=== PATIENT | male | born 1960 | race Caucasian/White ===

== ENCOUNTER 2024-08-02 22:13 | Inpatient (IN) | payer OTHER, MEDICAID ==
[~2024-08-02] VITALS: Ht 172.7 cm; Wt 74.2 kg
[2024-08-02 22:44] LABS: COVID AG,FIA SOURCE NASAL SWAB
[2024-08-02 23:04] LABS: SARS-COV2 (COVID) ANTIGEN,FIA Negative (Negative)
[2024-08-02 23:07] LABS: PLATELET COUNT (AUTO) 341 K/uL (150-450); RED BLOOD CELL COUNT(AUTO) 4.53 MIL/uL (4.50-5.90); RED CELL DISTRIBUTION WIDTH 15.0 % (11.5-14.5); WHITE BLOOD COUNT (AUTO) 7.9 K/uL (4.5-11.0)
[2024-08-02 23:14] LABS: CALCIUM, TOTAL 8.5 mg/dL (8.8-10.5); CREATININE 1.04 mg/dL (0.60-1.30); GLOMERULAR FILTR. RATE CALC > 60 mL/min (>60); GLUCOSE,RANDOM 98 mg/dL (70-110); SODIUM SERUM 137 mmol/L (136-145); UREA NITROGEN, BLOOD 14 mg/dL (7-18)
[2024-08-03 07:04] LABS: APPEARANCE,URINE CLEAR (CLEAR); GLUCOSE, URINE (UA) NEGATIVE (NEGATIVE); LEUKOCYTE ESTERASE ,URINE NEGATIVE (NEGATIVE); NITRATE,URINE NEGATIVE (NEGATIVE); OCCULT BLOOD,URINE NEGATIVE (NEGATIVE); PH,URINE DRUG SCREEN 6.0 (5.0-8.0); SPECIFIC GRAVITIY, URINE 1.022 (1.003-1.030)
[2024-08-03 07:10] LABS: ALCOHOL, URINE DRUG SCREEN NEGATIVE (NEGATIVE); AMPHET/METH SCREEN,URINE POSITIVE (NEGATIVE); BARBITURATE SCREEN, URINE NEGATIVE (NEGATIVE); CANNABINOID SCREEN,URINE POSITIVE (NEGATIVE); COCAINE SCREEN,URINE NEGATIVE (NEGATIVE); METHADONE SCREEN, URINE NEGATIVE (NEGATIVE)
[2024-08-03 10:17] VITALS: BP 151/80; PULSE 78; RESP 20; TEMP 97.3; O2SAT 96
[2024-08-03 11:11] VITALS: BP 151/80; PULSE 78; TEMP 97.3
[2024-08-03] MEDS ORDERED: GuaiFENesin/D-METHORPHAN [SUGAR-FREE] 200-20MG/10 ML SYRUP UDCUP PO PRN (16:45)
[2024-08-03] MEDS ORDERED: MAG HYDROX/ALUMINUM HYD/SIMETH ES 30 ML SUSPENSION UDCUP PO PRN (16:45)
[2024-08-03] MEDS ORDERED: DOCUSATE SODIUM 100 MG CAPSULE PO PRN (16:45)
[2024-08-03] MEDS ORDERED: LOPERAMIDE HCL 2 MG CAPSULE PO PRN (16:45)
[2024-08-03] MEDS ORDERED: ALBUTEROL SULFATE HFA 90 MCG/PUFF 8 GM INHALER IH PRN (16:45)
[2024-08-03] MEDS ORDERED: ONDANSETRON 4 MG TABLET PO PRN (16:45)
[2024-08-03] MEDS ORDERED: PETROLATUM,WHITE 28 GM JELLY TP PRN (16:45)
[2024-08-03] MEDS ORDERED: NICOTINE 14 MG/24 HOUR PATCH TD PRN (16:45)
[2024-08-03] MEDS ORDERED: ACETAMINOPHEN 325 MG TABLET PO PRN (16:45)
[2024-08-03 20:10] VITALS: BP 153/83; PULSE 92; RESP 18; TEMP 98.1; O2SAT 99
[2024-08-04 06:39] VITALS: BP 146/84; PULSE 86; RESP 18; TEMP 97.6
[2024-08-04] MEDS: IBUPROFEN 400 MG TABLET PO PRN (06:45)
[2024-08-04 08:23] VITALS: BP 129/69; PULSE 86; RESP 18; TEMP 97.2; O2SAT 98
[2024-08-04 08:40] LABS: PLATELET COUNT (AUTO) 396 K/uL (150-450); RED BLOOD CELL COUNT(AUTO) 4.88 MIL/uL (4.50-5.90); RED CELL DISTRIBUTION WIDTH 15.0 % (11.5-14.5); WHITE BLOOD COUNT (AUTO) 8.8 K/uL (4.5-11.0)
[2024-08-04 08:45] LABS: ASPARTATE AMINOTRANSFERASE 23 U/L (15-37); CALCIUM, TOTAL 9.0 mg/dL (8.8-10.5); CHOL/HDL RATIO 4.1 (4.2-7.3); CREATININE 0.97 mg/dL (0.60-1.30); GLOMERULAR FILTR. RATE CALC > 60 mL/min (>60); GLUCOSE,RANDOM 110 mg/dL (70-110); LDL CHOL (CALC.) 130 mg/dL (0-130); SODIUM SERUM 137 mmol/L (136-145); TOTAL PROTEIN, SERUM 7.0 g/dL (6.4-8.2); UREA NITROGEN, BLOOD 11 mg/dL (7-18)
[2024-08-04 20:11] VITALS: RESP 17
[2024-08-04] MEDS: ZOLPIDEM TARTRATE 10 MG TABLET PO PRN (21:14)
[2024-08-05 08:15] VITALS: BP 126/87; PULSE 81; RESP 18; TEMP 97.7; O2SAT 99
[2024-08-05 21:15] VITALS: BP 135/99; PULSE 83; RESP 18; TEMP 98.1; O2SAT 99
[2024-08-06 08:39] VITALS: BP 119/90; PULSE 98; RESP 18; TEMP 97; O2SAT 96
[2024-08-06] MEDS: MAGNESIUM HYDROXIDE SUSPENSION 30 ML UDCUP PO PRN (09:02)
[2024-08-06 20:18] VITALS: BP 141/91; PULSE 91; RESP 18; TEMP 98.1; O2SAT 100
[2024-08-06 20:31] VITALS: BP 144/87; PULSE 88; RESP 18; TEMP 98.3; O2SAT 99
[2024-08-07 08:08] VITALS: BP 137/98; PULSE 98; RESP 18; TEMP 98; O2SAT 97
[2024-08-07 21:00] VITALS: BP 136/91; PULSE 89; RESP 17; TEMP 97.2; O2SAT 89
[2024-08-08 08:07] VITALS: BP 121/81; PULSE 91; RESP 17; TEMP 97.9; O2SAT 98
[2024-08-08 09:07] VITALS: RESP 16
[2024-08-08] MEDS ORDERED: ARIP5TAB37 PO (09:48)
== END 2024-08-08 13:00 | disposition home or self-care (01) | DRG 885 ==
LOC: EMS 22:13 → UNDOADMIN 08-03 05:19 → B3A 08-03 05:19
PROVIDERS: ADMIT Psychiatry & Neurology Psychiatry; ATTEND Psychiatry & Neurology Psychiatry
PROC: GZHZZZZ Group Psychotherapy (ICD-10-PCS; principal; 2024-08-03)
PROC: GZ52ZZZ Individual Psychotherapy, Cognitive (ICD-10-PCS; 2024-08-03)
DX: F33.2 Major depressive disorder, recurrent severe without psychotic features (principal); R45.851 Suicidal ideations; F15.10 Other stimulant abuse, uncomplicated; F12.10 Cannabis abuse, uncomplicated; Z20.822 Contact with and (suspected) exposure to COVID-19; G47.00 Insomnia, unspecified; F41.9 Anxiety disorder, unspecified; F17.210 Nicotine dependence, cigarettes, uncomplicated; F10.90 Alcohol use, unspecified, uncomplicated; Y90.0 Blood alcohol level of less than 20 mg/100 ml; Z79.899 Other long term (current) drug therapy; Z91.51 Personal history of suicidal behavior; Z63.4 Disappearance and death of family member
CPT/HCPCS: 80048; 80053; 80061; 80307; 81003; 83036; 84436; 84443; 85025; 99285; G0480